=== PATIENT | male | born 1980 | race Caucasian/White ===

== ENCOUNTER 2016-11-28 10:43 | Emergency (ER) | payer SELFPAY ==
[~2016-11-28] VITALS: Ht 180.3 cm; Wt 109.1 kg
[~2016-11-28 10:43] MED LIST: ALPRAZOLAM0.5 MG PO; AUGMENTIN875 MG PO; BENADRYL50 MG PO; ERGOCALCIF50000 UNIT PO; HYDROCODON-ACE1 EAC7 PO; MEN'S BIOMULTI1 EACH PO; METHADONE 22 MG/1 ML PR; PERCOCET 5/31 TABLET PO; PREDNISONE10 M1 PO; PRILOSEC40 MG PO; SUCRALFATE1 GM PO; ZOFRAN ODT4 MG PO
[2016-11-28 10:46] VITALS: BP 126/105
[2016-11-28] MEDS ORDERED: ULTRAM50 MG PO (12:28)
== END 2016-11-28 13:08 | disposition home or self-care (01) ==
LOC: EME 10:43
DX: S83.91XA Sprain of unspecified site of right knee, initial encounter (principal); X50.1XXA Overexertion from prolonged static or awkward postures, initial encounter; Y93.61 Activity, american tackle football; Z88.6 Allergy status to analgesic agent; F17.200 Nicotine dependence, unspecified, uncomplicated
CPT/HCPCS: 73564; 99281; 99284